=== PATIENT | female | born 1935 | race Caucasian/White ===

== ENCOUNTER → 2017-02-03 | Outpatient (CLI) | payer MEDICARE | END | disposition home or self-care (01) | LOC: CFH 10:06 | PROVIDERS: ATTEND Internal Medicine Cardiovascular Disease | DX: I35.0 Nonrheumatic aortic (valve) stenosis (principal) | CPT/HCPCS: 93306 ==

== ENCOUNTER → 2018-09-24 | Outpatient (CLI) | payer MEDICARE | END | disposition home or self-care (01) | LOC: CFH 12:37 | PROVIDERS: ATTEND Internal Medicine | DX: M47.814 Spondylosis without myelopathy or radiculopathy, thoracic region (principal); M47.816 Spondylosis without myelopathy or radiculopathy, lumbar region; M43.8X4 Other specified deforming dorsopathies, thoracic region; M41.84 Other forms of scoliosis, thoracic region; M25.78 Osteophyte, vertebrae; M48.061 Spinal stenosis, lumbar region without neurogenic claudication | CPT/HCPCS: 72072; 72110 ==

== ENCOUNTER 2019-02-11 10:22 | Outpatient (CLI) | payer MEDICARE | END 2019-02-11 23:59 | disposition home or self-care (01) | LOC: CFH 10:22 | PROVIDERS: ATTEND Internal Medicine Cardiovascular Disease | DX: I08.3 Combined rheumatic disorders of mitral, aortic and tricuspid valves (principal); I10 Essential (primary) hypertension; E78.5 Hyperlipidemia, unspecified; Z87.891 Personal history of nicotine dependence | CPT/HCPCS: 0399T; 93306 ==

== ENCOUNTER 2019-09-03 07:47 | Day surgery (SDC) | payer MEDICARE ==
[~2019-09-03] VITALS: Ht 170.2 cm; Wt 65.9 kg
[2019-09-03] MEDS ORDERED: SODIUM CHLORIDE 0.9% 1,000 ML IV SCH (08:18)
[2019-09-03] MEDS ORDERED: ASPIRIN 325 MG TABLET EC PO ONE (08:30)
[2019-09-03 08:33] VITALS: BP 125/62
[2019-09-03] MEDS ORDERED: CA C1TAB62 PO (08:45)
[2019-09-03] MEDS ORDERED: LOSA25TA25 PO (08:45)
[2019-09-03] MEDS ORDERED: ATOR40TA PO (08:45)
[2019-09-03] MEDS ORDERED: CHOL10003 PO (08:45)
[2019-09-03] MEDS ORDERED: AMLO-150 PO (08:45)
[2019-09-03] MEDS ORDERED: METO25TA91 PO (08:45)
[2019-09-03] MEDS ORDERED: VIT1CAPS9 PO (08:45)
[2019-09-03] MEDS ORDERED: ASPI-496 PO (08:45)
[2019-09-03] MEDS ORDERED: ASPIRIN 325 MG TABLET EC ONE (08:47)
[2019-09-03] MEDS ORDERED: MIDAZOLAM 1 MG/ML, 5ML ONE (11:00)
[2019-09-03] MEDS ORDERED: FENTANYL PF 100 MCG/2ML ONE (11:00)
[2019-09-03] MEDS ORDERED: BIVALIRUDIN 250 MG ONE (11:01)
[2019-09-03] MEDS ORDERED: TICAGRELOR 90 MG TABLET ONE (11:01)
[2019-09-03] MEDS ORDERED: VERAPAMIL 2.5 MG/ML, 2ML ONE (11:01)
[2019-09-03] MEDS ORDERED: HEPARIN 1,000 UNITS/ML, 10ML ONE (11:01)
[2019-09-03] MEDS ORDERED: LIDOCAINE-MPF 1%, 5ML ONE (11:01)
== END 2019-09-03 14:00 | disposition home or self-care (01) ==
LOC: CACL 07:47
PROVIDERS: ATTEND Internal Medicine Cardiovascular Disease
DX: I35.0 Nonrheumatic aortic (valve) stenosis (principal); I10 Essential (primary) hypertension; E78.2 Mixed hyperlipidemia; I70.213 Atherosclerosis of native arteries of extremities with intermittent claudication, bilateral legs; Z79.82 Long term (current) use of aspirin; Z79.899 Other long term (current) drug therapy; Z87.891 Personal history of nicotine dependence
CPT/HCPCS: 93454; 99156; C1769; C1894; J1644; J2250; J3010; Q9967; J0583

== ENCOUNTER → 2019-09-06 | Outpatient (CLI) | payer MEDICARE ==
[~2019-09-06] MED LIST: AMLO-150 PO; ASPI-496 PO; ATOR40TA PO; CA C1TAB62 PO; CHOL10003 PO; LOSA25TA25 PO; METO25TA91 PO; VISIPAQUE 320 MG/ML, 150ML BOTTLE ONE; VIT1CAPS9 PO
== END | disposition home or self-care (01) ==
LOC: CVU 08:21
PROVIDERS: ATTEND Internal Medicine Cardiovascular Disease
DX: I65.23 Occlusion and stenosis of bilateral carotid arteries (principal); I35.8 Other nonrheumatic aortic valve disorders; I10 Essential (primary) hypertension; I70.0 Atherosclerosis of aorta; I70.1 Atherosclerosis of renal artery; E78.5 Hyperlipidemia, unspecified; Z87.891 Personal history of nicotine dependence
CPT/HCPCS: 71275; 74174; 93306; 93880; 94010; 94726; 94729; Q9967

== ENCOUNTER 2019-09-14 05:39 | Inpatient (IN) | payer MEDICARE ==
[~2019-09-14] VITALS: Ht 170.2 cm; Wt 61.0 kg
[2019-09-14] VITALS (7 sets, daily range): BP systolic 112–135; BP diastolic 59–69
[~2019-09-14 05:39] MED LIST changes: -VISIPAQUE 320 MG/ML, 150ML BOTTLE ONE
[2019-09-14] MEDS ORDERED: SODIUM CHLORIDE 0.9% 1,000 ML IV ONE (06:16)
[2019-09-14] MEDS ORDERED: ONDANSETRON 2MG/ML, 2ML IVPush PRN ×2 (06:30→09:00)
[2019-09-14 06:50] LABS: MEAN CORPUSCULAR HEMOGLOBIN 31.4 pg (27.0-34.8); MEAN CORPUSCULAR HGB CONC 32.9 g/dL (32.4-35.8); MEAN CORPUSCULAR VOLUME 95.2 fL (80-100); MEAN PLATELET VOLUME 9.4 fL (7.4-10.4); PLATELET COUNT 196 x10^3/uL (130-400); RED BLOOD COUNT 4.35 x10^6/uL (3.82-5.3); RED CELL DISTRIBUTION WIDTH 15.7 % (9.6-15.2)
[2019-09-14 06:58] LABS: ALANINE AMINOTRANSFERASE 31 U/L (12-78); ALBUMIN 3.5 g/dL (3.4-5.0); ANION GAP 8 mmol/L (5-15); CALCIUM 8.9 mg/dL (8.5-10.1); CHLORIDE 111 mmol/L (98-107); CREATININE 0.89 mg/dL (0.55-1.02); INTERNATIONAL NORMALIZED RATIO 1.03 (0.93-1.1); PROTHROMBIN TIME 10.9 Seconds (9.6-11.5)
[2019-09-14] MEDS: CHLORHEXIDINE 15 ML UDC MM PRN ×2 (06:59→20:43)
[2019-09-14 07:02] LABS: ALKALINE PHOSPHATASE 107 U/L (45-117); BILIRUBIN,TOTAL 0.6 mg/dL (0.2-1.0)
[2019-09-14] MEDS ORDERED: FENTANYL PF 250 MCG/5ML ONE (07:11)
[2019-09-14] MEDS ORDERED: SUCCINYLCHOLINE 20 MG/ML, 10ML ONE (07:12)
[2019-09-14] MEDS ORDERED: PROPOFOL 10 MG/ML, 20ML ONE (07:12)
[2019-09-14] MEDS ORDERED: ROCURONIUM 10MG/ML,5ML ONE (07:12)
[2019-09-14] MEDS ORDERED: PHENYLEPHRINE 10 MG/ML ONE (07:12)
[2019-09-14 07:13] LABS: BASOPHILS # (AUTO) 0.08 x10^3/uL (0-0.1); BASOPHILS % (AUTO) 1 % (0-1); EOSINOPHILS # (AUTO) 0.18 x10^3/uL (0-0.4); EOSINOPHILS % (AUTO) 3 % (1-7); LYMPHOCYTES # (AUTO) 1.67 x10^3/uL (1-3.4); LYMPHOCYTES % (AUTO) 26 % (22-44); MD SCAN; MONOCYTES # (AUTO) 0.93 x10^3/uL (0.2-0.8); MONOCYTES % (AUTO) 15 % (2-9); NEUTROPHILS # (AUTO) 3.51 x10^3/uL (1.8-6.8); NEUTROPHILS % (AUTO) 55 % (42-75)
[2019-09-14] MEDS ORDERED: PROTAMINE SULFATE 10 MG/ML, 25ML ONE (08:25)
[2019-09-14] MEDS ORDERED: CLOPIDOGREL 300 MG TABLET PO ONE (09:00)
[2019-09-14] MEDS ORDERED: ACETAMINOPHEN 325 MG TABLET PO PRN (09:00)
[2019-09-14] MEDS ORDERED: hydrALAzine 20 MG/ML, 1ML IVPush PRN (09:00)
[2019-09-14] MEDS ORDERED: LABETALOL 20 MG/4 ML IVPush PRN (09:00)
[2019-09-14] MEDS: AMLODIPINE 5 MG TABLET PO SCH (09:45)
[2019-09-14] MEDS: METOPROLOL SUCCINATE 100 MG TAB.ER.24H PO SCH (09:45)
[2019-09-14] MEDS: ASPIRIN 81 MG TABLET EC PO SCH (09:45)
[2019-09-14] MEDS: LOSARTAN 100 MG TAB PO SCH (09:45)
[2019-09-14] MEDS ORDERED: ATORVASTATIN 20 MG TABLET PO SCH (21:00)
[2019-09-15] VITALS: BP 134/63
[2019-09-15 04:25] LABS: BASOPHILS # (AUTO) 0.03 x10^3/uL (0-0.1); BASOPHILS % (AUTO) 0 % (0-1); EOSINOPHILS # (AUTO) 0.01 x10^3/uL (0-0.4); EOSINOPHILS % (AUTO) 0 % (1-7); LYMPHOCYTES # (AUTO) 1.26 x10^3/uL (1-3.4); LYMPHOCYTES % (AUTO) 13 % (22-44); MD NO; MEAN CORPUSCULAR HEMOGLOBIN 31.3 pg (27.0-34.8); MEAN CORPUSCULAR HGB CONC 32.7 g/dL (32.4-35.8); MEAN CORPUSCULAR VOLUME 95.6 fL (80-100); MONOCYTES # (AUTO) 1.13 x10^3/uL (0.2-0.8); MONOCYTES % (AUTO) 12 % (2-9); NEUTROPHILS # (AUTO) 7.04 x10^3/uL (1.8-6.8); NEUTROPHILS % (AUTO) 74 % (42-75); PLATELET COUNT 155 x10^3/uL (130-400); RED BLOOD COUNT 3.79 x10^6/uL (3.82-5.3); RED CELL DISTRIBUTION WIDTH 15.4 % (9.6-15.2)
[2019-09-15 04:37] LABS: ANION GAP 6 mmol/L (5-15); CALCIUM 8.8 mg/dL (8.5-10.1); CHLORIDE 112 mmol/L (98-107)
[2019-09-15 04:38] LABS: CREATININE 0.89 mg/dL (0.55-1.02)
[2019-09-15] MEDS ORDERED: DEXAMETHASONE 4 MG/ML, 1ML ONE (07:33)
[2019-09-15] MEDS ORDERED: ONDANSETRON 2MG/ML, 2ML ONE (07:33)
[2019-09-15] MEDS ORDERED: CEFAZOLIN 1,000 MG ONE (07:33)
[2019-09-15] MEDS ORDERED: GLYCOPYRROLATE 0.2MG/1ML, 5ML ONE (07:33)
[2019-09-15] MEDS: LOSARTAN 100 MG TAB PO SCH (07:57)
[2019-09-15] MEDS: AMLODIPINE 5 MG TABLET PO SCH (07:57)
[2019-09-15] MEDS: METOPROLOL SUCCINATE 100 MG TAB.ER.24H PO SCH (07:57)
[2019-09-15] MEDS: ASPIRIN 81 MG TABLET EC PO SCH (07:57)
[2019-09-15 08:28] VITALS: BP 115/60
[2019-09-15] MEDS ORDERED: CLOPIDOGREL 75 MG TABLET PO SCH (09:00)
[2019-09-15] MEDS ORDERED: CLOP75TA PO (13:43)
[2019-09-16] MEDS ORDERED: METOPROLOL SUCCINATE 100 MG TAB.ER.24H PO SCH (09:00)
== END 2019-09-15 16:05 | disposition home or self-care (01) | DRG 266 ==
LOC: ORIP 05:39 → CSU 08:50 → DCLOUNGE 09-15 15:56
PROVIDERS: ADMIT Internal Medicine Cardiovascular Disease; ATTEND Internal Medicine Cardiovascular Disease
PROC: 027F3ZZ Dilation of Aortic Valve, Percutaneous Approach (ICD-10-PCS; 2019-09-14)
PROC: B246ZZ4 Ultrasonography of Right and Left Heart, Transesophageal (ICD-10-PCS; 2019-09-14)
PROC: 02RF38Z Replacement of Aortic Valve with Zooplastic Tissue, Percutaneous Approach (ICD-10-PCS; principal; 2019-09-14 07:30)
DX: I35.0 Nonrheumatic aortic (valve) stenosis (principal); Z00.6 Encounter for examination for normal comparison and control in clinical research program; I50.33 Acute on chronic diastolic (congestive) heart failure; I11.0 Hypertensive heart disease with heart failure; E78.5 Hyperlipidemia, unspecified; I73.9 Peripheral vascular disease, unspecified; D64.9 Anemia, unspecified
CPT/HCPCS: 33361; 36415; 70450; 80048; 80053; 83880; 85025; 85347; 85610; 85730; 86850; 86900; 86923; 87081; 93005; 93306; 93312; 93321; 93325; 93355; 93591; C1760; C1769; C1894; G0378; J0690; J1100; J2405; J2704; J2720; J3010; J0330; J2370; J7030; Q9967

== ENCOUNTER 2019-10-08 10:27 | Outpatient (CLI) | payer MEDICARE ==
[~2019-10-08 10:27] MED LIST changes: +CLOP75TA PO
== END 2019-10-08 23:59 | disposition home or self-care (01) ==
LOC: CVU 10:27
PROVIDERS: ATTEND Internal Medicine Cardiovascular Disease
DX: I08.1 Rheumatic disorders of both mitral and tricuspid valves (principal); I65.29 Occlusion and stenosis of unspecified carotid artery
CPT/HCPCS: 93306

== ENCOUNTER → 2020-08-29 | Outpatient (CLI) | payer MEDICARE | END | disposition home or self-care (01) | LOC: CFH 13:38 | PROVIDERS: ATTEND Internal Medicine Cardiovascular Disease | DX: Z01.810 Encounter for preprocedural cardiovascular examination (principal); I08.1 Rheumatic disorders of both mitral and tricuspid valves; I11.9 Hypertensive heart disease without heart failure; R06.02 Shortness of breath; I65.29 Occlusion and stenosis of unspecified carotid artery | CPT/HCPCS: 93306 ==

== ENCOUNTER 2020-10-31 10:44 | Outpatient (CLI) | payer MEDICARE | END 2020-10-31 23:59 | disposition home or self-care (01) | LOC: CFH 10:44 | PROVIDERS: ATTEND Nurse Practitioner Family | DX: Z13.820 Encounter for screening for osteoporosis (principal); M81.0 Age-related osteoporosis without current pathological fracture; E55.9 Vitamin D deficiency, unspecified; Z91.81 History of falling; Z79.01 Long term (current) use of anticoagulants | CPT/HCPCS: 77080 ==